=== PATIENT | male | born 1960 | race Caucasian/White ===

== ENCOUNTER → 2017-07-01 | Outpatient (CLI) | payer OTHER ==
[~2017-07-01] MED LIST: IOPAMIDOL (ISOVUE 370) 100 ML BTL IV ONE
== END ==
LOC: FIMAGING 07:55
PROVIDERS: ATTEND Internal Medicine Cardiovascular Disease
DX: I48.91 Unspecified atrial fibrillation (principal); R91.8 Other nonspecific abnormal finding of lung field
CPT/HCPCS: Q9967

== ENCOUNTER 2017-07-11 11:03 | Observation (INO) | payer OTHER ==
[2017-07-11] MEDS ORDERED: NS 1,000 ML IV ONE (11:07)
--- NOTE | 2017-07-11 11:28 | CPEKG ---
Heart Rate: 53 RR Interval: 1132 P-R Interval: 180 QRSD Interval: 96 QT Interval: 440 QTC Interval: 414 P Nutley: 41 QRS Nutley: 31 T Wave Nutley: 49 EKG Severity - NORMAL ECG - EKG Impression: SINUS RHYTHM Electronically Signed By: Milind Ruiz 11-Jul-2017 13:53:33
[2017-07-11 11:46] LABS: % IMMATURE GRANULYOCYTES 0.3 % (0.0-1.1); ABSOLUTE IMMATURE GRANULOCYTES 0.02 10^3/uL (0.00-0.10); ADD DIFF? NO; ADD MORPH? NO; ADD SCAN? NO; ATYPICAL LYMPHOCYTE FLAG 10 (0-99); FRAGMENT RBC FLAG 0 (0-99); HEMATOCRIT 45.6 % (40.0-51.0); HEMOGLOBIN 16.2 g/dL (13.7-17.5); LEFT SHIFT FLG 0 (0-99); LIPEMIA HEMOLYSIS FLAG 90 (0-99); MEAN CELL HEMOGLOBIN 30.7 pg (27.9-34.1); MEAN CELL HEMOGLOBIN CONCENTR. 35.5 g/dL (32.4-36.7); MEAN CELL VOLUME 86.4 fL (81.5-99.8); MEAN PLATELET VOLUME 8.9 fL (8.7-11.7); PLATELET CLUMPS FLAG 0 (0-99); PLATELET COUNT 201 10^3/uL (150-400); RED BLOOD CELL COUNT 5.28 10^6/uL (4.40-6.38); RED CELL DISTRIBUTION WIDTH 12.5 % (11.5-15.2)
[2017-07-11 11:55] LABS: PROTIME(PATIENT) 13.1 SEC (12.0-15.0)
[2017-07-11 11:56] LABS: APTT 25.8 SEC (23.0-38.0)
[2017-07-11] MEDS ORDERED: LIDOCAINE 1% 300 MG/30 ML SDV ONE (11:58)
[2017-07-11] MEDS ORDERED: HEPARIN/DEXTROSE 25,000 UNIT/500 ML BAG ONE (11:58)
[2017-07-11] MEDS ORDERED: BUPIVACAINE 0.5% 30 ML SDV ONE (11:59)
[2017-07-11] MEDS ORDERED: HEPARIN 10,000 UNIT/10 ML MDV ONE (11:59)
[2017-07-11] MEDS ORDERED: IOPAMIDOL (ISOVUE-300) 100 ML BTL ONE (12:03)
[2017-07-11 12:05] LABS: ANION GAP 11 mEq/L (8-16); CALCIUM 9.8 mg/dL (8.5-10.4); CARBON DIOXIDE 24 mEq/l (22-31); CHLORIDE 104 mEq/L (97-110); GLOMERULAR FILTRATION RATE > 60; GLUCOSE 82 mg/dL (70-100); MAGNESIUM 2.1 mg/dL (1.6-2.3); POTASSIUM 4.4 mEq/L (3.5-5.2); SODIUM 139 mEq/L (134-144)
--- NOTE | 2017-07-11 12:12 | PDHPUP ---
History & Physical Update H&P update statement: This history and physical update is based on an assessment of the patient which was completed after admission or registration (within 24 hours), but prior to the surgery/procedure. H&P update: H&P reviewed & patient examined, no change in patient's condition since H&P completed
[2017-07-11] MEDS ORDERED: MIDAZOLAM 2 MG/2 ML VIAL ONE (12:45)
[2017-07-11] MEDS ORDERED: PROPOFOL/EMULSION 500 MG/50 ML BOTTLE IV ONE ×2 (12:48→14:11)
[2017-07-11] MEDS ORDERED: fentaNYL 100 MCG/2 ML INJ ONE (12:48)
[2017-07-11] MEDS ORDERED: MIDAZOLAM 2 MG/2 ML VIAL IVP ONE (13:22)
--- NOTE | 2017-07-11 13:22 | PDANEPAE ---
ANE Past Medical History - Pulmonary History Hx Oxygen in Use at Home: No Hx Sleep Apnea: No ANE Review of Systems Review of Systems: ANE Patient History - Allergies Allergies/Adverse Reactions: levofloxacin [From Levaquin] Allergy (Intermediate, Verified 05/11/15 17:10) Hives NSAIDS (Non-Steroidal Anti-Inflamma Allergy (Intermediate, Verified 05/11/15 17: 10) INCREASES HIVES POLLEN Allergy (Intermediate, Uncoded 12/08/10 17:31) HIVES/STUFFY NOSE - Home Medications Home Medications: Cetirizine [ZyrTEC 10 mg (*)] 10 mg PO DAILY PRN 07/08/17 [Last Taken Unknown] Herbals/Supplements -Info Only 1 ea PO DAILY 07/08/17 [Last Taken Unknown] Omeprazole [Prilosec 20 mg] 20 mg PO DAILY 07/08/17 [Last Taken Unknown] ZOLPIDEM TARTRATE [Ambien CR 12.5 mg] 12.5 mg PO HS PRN 07/08/17 [Last Taken Unknown] celeCOXIB [CeleBREX] 100 mg PO DAILY PRN 07/08/17 [Last Taken Unknown] - Smoking Hx Smoking Status: Never smoked ANE Labs/Vital Signs - Labs Result Diagrams: 07/11/17 11:30 07/11/17 11:30 - Vital Signs Height: 187.96 cm ANE Physical Exam - Airway Neck exam: FROM Mallampati Score: Class 1 Mouth exam: normal dental/mouth exam - Pulmonary Pulmonary: no respiratory distress, no rales or rhonchi, clear to auscultation - Cardiovascular Cardiovascular: regular rate and rhythym, no murmur, rub, or gallop - ASA Status ASA Status: II ANE Anesthesia Plan Anesthesia Plan: general endotracheal anesthesia
[2017-07-11] MEDS ORDERED: RANITIDINE 50 MG/2 ML VIAL ONE (14:06)
[2017-07-11] MEDS ORDERED: METOCLOPRAMIDE 10 MG/2 ML VIAL ONE (14:06)
[2017-07-11] MEDS ORDERED: ROCURONIUM 50 MG/5 ML VIAL ONE ×3 (14:06→14:10)
[2017-07-11] MEDS ORDERED: ONDANSETRON 4 MG/2 ML VIAL ONE (14:06)
[2017-07-11] MEDS ORDERED: epHEDrine SULFATE 10 MG/ML SYR ONE (15:35)
[2017-07-11] MEDS ORDERED: SUGAMMADEX SODIUM 200 MG/2 ML VIAL IVP ONE (15:35)
[2017-07-11] MEDS ORDERED: PHENYLEPHRINE HCL 100 MCG/ML SYR ONE (15:35)
[2017-07-11] MEDS ORDERED: PROTAMINE SULFATE 50 MG/5 ML VIAL IVP ONE (15:39)
[2017-07-11] MEDS ORDERED: ACETAMINOPHEN 325 MG TAB PO PRN (15:46)
[2017-07-11] MEDS ORDERED: ONDANSETRON 4 MG/2 ML VIAL IVP PRN (15:46)
[2017-07-11] MEDS ORDERED: OXYCODONE/APAP 5/325 TAB PO PRN (15:46)
[2017-07-11] MEDS ORDERED: CETIRIZINE 10 MG TAB PO PRN (15:49)
[2017-07-11] MEDS ORDERED: DEXAMETHASONE 4 MG/ML VIAL IVP PRN (15:54)
[2017-07-11] MEDS ORDERED: PROMETHAZINE HCL 25 MG/ML INJ IVP PRN (15:54)
[2017-07-11] MEDS ORDERED: NALOXONE HCL 0.4 MG/ML INJ IVP PRN (15:54)
[2017-07-11] MEDS ORDERED: MEPERIDINE 25 MG/ML SYR IVP PRN (15:54)
[2017-07-11] MEDS ORDERED: fentaNYL 100 MCG/2 ML INJ IVP PRN (15:54)
[2017-07-11] MEDS ORDERED: LR 500 ML IV PRN (15:54)
[2017-07-11] MEDS ORDERED: METOCLOPRAMIDE 10 MG/2 ML VIAL IVP PRN (15:54)
[2017-07-11] MEDS ORDERED: LIDOCAINE/PRILOCAINE 1 EACH CRTUBE TP ONE (16:15)
--- NOTE | 2017-07-11 16:26 | POSTANESTH ---
Post Anesthetic Evaluation Cardiovascular Status: Normal, Stable Respiratory Status: Normal, Stable Level of Consciousness/Mental Status: Can Participate in Eval Pain Control: Adequate, Prn Tx Ordered Nausea/Vomiting Control: Adequate, Prn Tx Ordered Complications Possibly Related to Anesthesia: None Noted
[2017-07-11] MEDS ORDERED: ZOLPIDEM TARTRATE 5 MG TAB PO PRN (16:43)
--- NOTE | 2017-07-11 16:58 | CPEKG ---
Heart Rate: 77 RR Interval: 779 P-R Interval: 200 QRSD Interval: 96 QT Interval: 400 QTC Interval: 453 P Donner: 64 QRS Donner: 40 T Wave Donner: 67 EKG Severity - ABNORMAL ECG - EKG Impression: SINUS RHYTHM EKG Impression: LEFT VENTRICULAR HYPERTROPHY Electronically Signed By: Milind Ruiz 12-Jul-2017 12:03:12
[2017-07-11 20:52] VITALS: TEMP 98.6
[2017-07-12] MEDS ORDERED: ENOXAPARIN 80 MG/0.8 ML SYR SC ONE (01:00)
[2017-07-12 06:02] LABS: % IMMATURE GRANULYOCYTES 0.3 % (0.0-1.1); ABSOLUTE IMMATURE GRANULOCYTES 0.03 10^3/uL (0.00-0.10); ADD DIFF? NO; ADD MORPH? NO; ADD SCAN? NO; ATYPICAL LYMPHOCYTE FLAG 0 (0-99); FRAGMENT RBC FLAG 0 (0-99); HEMATOCRIT 41.1 % (40.0-51.0); HEMOGLOBIN 14.1 g/dL (13.7-17.5); LEFT SHIFT FLG 0 (0-99); LIPEMIA HEMOLYSIS FLAG 90 (0-99); MEAN CELL HEMOGLOBIN 30.1 pg (27.9-34.1); MEAN CELL HEMOGLOBIN CONCENTR. 34.3 g/dL (32.4-36.7); MEAN CELL VOLUME 87.8 fL (81.5-99.8); PLATELET CLUMPS FLAG 0 (0-99); PLATELET COUNT 177 10^3/uL (150-400); RED BLOOD CELL COUNT 4.68 10^6/uL (4.40-6.38); RED CELL DISTRIBUTION WIDTH 12.6 % (11.5-15.2)
[2017-07-12 06:11] LABS: INR 1.1 (0.83-1.16); PROTIME(PATIENT) 14.1 SEC (12.0-15.0)
[2017-07-12 06:15] LABS: ANION GAP 10 mEq/L (8-16); CALCIUM 8.9 mg/dL (8.5-10.4); CARBON DIOXIDE 25 mEq/l (22-31); CHLORIDE 102 mEq/L (97-110); CREATININE 0.9 mg/dL (0.7-1.3); GLOMERULAR FILTRATION RATE > 60; GLUCOSE 115 mg/dL (70-100); POTASSIUM 4.1 mEq/L (3.5-5.2); SODIUM 137 mEq/L (134-144)
[2017-07-12 06:26] LABS: CK-MB INTERPRETATION POSITIVE (NEGATIVE)
--- NOTE | 2017-07-12 08:52 | CPEKG ---
Heart Rate: 70 RR Interval: 857 P-R Interval: 188 QRSD Interval: 92 QT Interval: 368 QTC Interval: 398 P Kent: 58 QRS Kent: 32 T Wave Kent: 44 EKG Severity - BORDERLINE ECG - EKG Impression: SINUS RHYTHM EKG Impression: BORDERLINE ST ELEVATION, ANTEROLATERAL LEADS Electronically Signed By: Milind Ruiz 12-Jul-2017 12:03:24
[2017-07-12] MEDS ORDERED: Herbals/Supplements -Info Only PO SCH (09:00)
[2017-07-12] MEDS ORDERED: PANTOPRAZOLE SODIUM 40 MG TAB PO SCH ×2 (09:00)
[2017-07-12] MEDS ORDERED: NON-FORMULARY NEW DRUG (Omeprazole [Prilosec 20 Mg] 20 MG) PO SCH (09:00)
[2017-07-12] MEDS ORDERED: APIXABAN 5 MG TAB PO SCH (09:00)
[2017-07-12 09:27] VITALS: O2SAT 98
[2017-07-12] MEDS ORDERED: PNEUMOCOCCAL 0.5ML VACCINE VIAL IM ONE (09:59)
--- NOTE | 2017-07-12 12:35 | ASMTCMCOM ---
CM Note CM Note Notes: Chart reviewed, No needs identified at this time. Home independent. CM available sholud needs arise. Date Signed: 07/12/2017 12:34 PM Electronically Signed By:Mary Devlin RN
--- NOTE | 2017-07-12 13:00 | EPPROC ---
Electrophysiology Procedure Note: Procedures performed: 05313-56 EP evaluation with RA/RV/LA pace/record, with arrhythmia induction 02160-10 EP evaluation with RA/RV pace record, insert/reposition catheter, with arrhythmia induction 03316 Atrial fibrillation ablation Intracardiac echocardiogram Cardioversion Transseptal puncture Fluoroscopy INDICATION: Paroxysmal atrial fibrillation PROCEDURE: The patient arrived in the Electrophysiology Laboratory in the fasting state. The right groin, left groin and right infraclavicular area were prepped and draped in the usual sterile fashion. Anesthesiologist administered general anesthesia. All catheters were placed percutaneously using the Seldinger technique and advanced into position under fluoroscopic guidance. One #7 Burmese deflectable octapolar electrode catheter was placed in the His-bundle position via the left femoral vein (2mm spacing, IVC electrode for unipolar recordings). This catheter was placed in the coronary sinus after transseptal puncture and later placed in the SVC-R subclavian vein junction to pace the right phrenic nerve during right pulmonary vein ablation. One #8 Burmese AcuNaV ultrasound catheter was placed in the left femoral vein and advanced into the right atrium. One #4 Burmese sheath was inserted into the left femoral artery via percutaneous technique and used for continuous arterial blood pressure monitoring and intermittent ACT determination. Programmed stimulation was performed from the right atrium, left atrium (CS) and right ventricle. There was no evidence of AV accessory pathway. Intracardiac echo evaluation of the left atrium and pulmonary veins was performed. Baseline ACT was drawn and heparin bolus was administered and heparin drip was started prior to transseptal puncture. ACT was checked every 15 minutes and maintained in the range of 350-400 seconds. One 14Fr short sheath was placed in the right femoral vein. One 8Fr SL1 sheath was advanced into the right atrium via the 14Fr short sheath. Transseptal puncture was performed under intracardiac ultrasound, fluoroscopic and hemodynamic guidance placing the sheath into the left atrium. Lewis RF needle ( C0 curve) was used. The mean left atrial pressure was 4 mmHg. Pulmonary vein angiogram was done using SL1 sheath. CT angiography of pulmonary veins was done previously. There were distinct LSPV, LIPV, RSPV and RIPV. The SL1 sheath was exchanged for a Durata Therapeuticstronic Flexcath sheath using an Amplatz stiff guide wire. A 28 mm Cryoballoon catheter with a 20 mm Achieve catheter was placed via the sheath into the left atrium. Intracardiac ultrasound and PV angiograms were used to assist in placing the mapping catheter at the antrum of the pulmonary veins. All pulmonary veins were isolated successfully using cryoballoon ablation using freeze/thaw/freeze cycles at 2-3-minute intervals, with good [id number] of isolation. Coumadin ridge/Ligament of Jaxson region was ablated. Pre and post pulmonary vein recordings were measured on the spiral Achieve catheter to ensure complete pulmonary vein isolation. During the right-sided ablation, phrenic nerve pacing was performed to assess the phrenic nerve strength ( manually and with ICE visualization of liver movement during phrenic capture) and the phrenic nerve was intact throughout the right-sided ablation and at the end of the procedure. An esophageal temperature probe (12 electrode, Circa) was placed by the anesthesiologist at the beginning of the procedure. Esophageal temperature was monitored continuously and cryoablation was interrupted if esophageal temperature was <15 C. Cryoapplications 6, total cryoablation time 1120sec (LSPV -42, 420sec, LIPV -41 , 240sec, RIPV -50 390sec, RSPV -52 240sec). manipulation in the LSPV led to AF and pt had to be CV twice from AF There was no spontaneous atrial fibrillation. Mapping of all 4 pulmonary veins after isoproterenol infusion showed that all 4 pulmonary veins remained isolated. ICE imaging post ablation was consistent with pre ablation imaging with no changes noted, moreover there was no left atrial/left ventricular thrombus and no pericardial effusion. The catheters were withdrawn. Protamine was given. The sheaths were removed and manual pressure was used for hemostasis. The patient was recovered from anesthesia. There were no complications. The patient was arousable and moving all four extremities at the end of the procedure. Results: Paroxymsal AF Successful isolation of four veins CV X 2 post manipulation in LSPV CONCLUSIONS: * Paroxysmal atrial fibrillation. * Successful pulmonary vein isolation procedure (left and right pulmonary vein antrum) using cryoballoon ablation. * No apparent complications.
[2017-07-12 14:06] VITALS: BP 119/74; PULSE 76; RESP 19
--- NOTE | 2017-07-12 14:17 | GDS ---
[f rep st] DISCHARGE SUMMARY DIAGNOSIS ADMISSION: 1. Paroxysmal atrial fibrillation. 2. Palpitations. 3. Lightheadedness. DISCHARGE DIAGNOSIS: 1. Paroxysmal atrial fibrillation. 2. Status post pulmonary vein isolation, cryo balloon ablation for atrial fibrillation. PROCEDURES PERFORMED DURING HOSPITALIZATION: 1. Electrocardiogram. 2. Electrophysiology study. 3. Pulmonary vein isolation with cryo balloon ablation. 4. Echocardiogram. BRIEF HISTORY: Please see H and P. Briefly, the patient is a 56-year-old male, who was reporting ep isodes of palpitations and lightheadedness, he feels that this has been worsening. He did undergo ca rdiac monitoring, and was noted to have several episodes of atrial fibrillation, correlating with his symptoms. He was seen by Dr. Alvarez for evaluation, he was given options of medical management or int ervention. After reviewing the risks and benefits, the patient chose to undergo pulmonary vein isola tion procedure for attempted atrial fibrillation ablation. The patient was admitted to [facility], prepped for procedure, and taken to electrophysiology lab. There, E P procedure was performed, followed by successful pulmonary vein isolation procedure using cryo ballo on ablation. No apparent complications, patient was transferred to the intensive care unit for [facility] observation. There, he has been maintaining sinus rhythm, his vital signs are stable. He denie s any chest pain or shortness of breath. He has been up and walking here without any difficulties. PHYSICAL EXAMINATION ON DATE OF DISCHARGE: GENERAL APPEARANCE: Tall, well-groomed, male. He is alert and oriented to person, place, time, situation. Appears to be under no acute distress. CURRENT VITAL SIGNS: Blood pressure 123/82, heart rate 75, sinus rhythm on the monitor. Respiratio ns 14, saturating 98% on room air. HEENT: Head is normocephalic. Lips, tongue are pink and moist w ith no signs of cyanosis. Conjunctivae are pink. NECK: Trachea is midline, +2 carotid pulses bilat eral. No auscultated bruits, no jugular vein distention. RESPIRATORY: Lungs clear to auscultation, no rhonchi, rales or wheezes, no accessory muscle use, no intercostal muscle retraction noted. CARD IAC: Regular rate, regular rhythm, S1, S2, no S3, S4, gallops, rubs or murmur noted. ABDOMEN: Soft , nontender, bowel sounds x4 quadrants. No organomegaly, no palpable masses. SKIN: [place], warm, dry , no cyanosis, no clubbing, no peripheral edema. VASCULAR: +2 carotids bilateral, +2 radials bilate ral, +1 dorsal pedal and posterior tibial pulses bilateral. Catheter insertion site, bilateral groin sites, each site with no redness, swelling, drainage, ecchymosis, or hematoma. No auscultated bruit at either site. LABORATORY STUDIES: Studies drawn today show WBC of 10.73, hemoglobin of 14.1, hematocrit of 41.1, p latelet count 177, INR 1.10, sodium 137, potassium 4.1, chloride 102, CO2 25, BUN 15, creatinine 0.9, glucose 115, calcium 8.9. CK 226, CK-MB fraction 33.0, CK-MB percentage 14.6, noted troponin of 14. 10, expected to have elevated cardiac enzymes status post cryo balloon ablation. STUDIES: Electrophysiology and cryo balloon ablation as mentioned above. Morning electrocardiogram shows sinus rhythm, normal axis, borderline ST elevation in anterior lateral leads. Echocardiogram: Preliminary echocardiogram shows normal LV wall motion with normal EF. No pericardi al effusion. DISCHARGE DISPOSITION: Patient will be discharged home in stable condition. He is under activity re strictions of not lifting more than 10 pounds for next week, and no strenuous activity for the next 2 weeks. DISCHARGE MEDICATIONS: Please see discharge medication reconciliation sheet, note patient has been s tarted on Eliquis at 5 mg p.o. twice daily after cryo balloon ablation due to higher risk of thrombot ic event post ablation. He has also been advised to take Prilosec 20 mg p.o. daily for the next 6 we eks. DISCHARGE INSTRUCTIONS: Post cryo balloon atrial fibrillation ablation discharge instructions went o izabella with the patient including monitoring for signs of infection, activity restrictions, bleeding pre cautions, medication compliance, medication risk with Eliquis. At the time of discharge, patient izabella balizes understanding and has no questions. He has a followup appointment set with Dr. Alvarez in early July. He has been told that if any problems or concerns post hospital discharge, he is to notif y our office or return to the hospital. TOTAL TIME SPENT ON DISCHARGE: Greater than 30 minutes. /[id number]/MODL
--- NOTE | 2017-07-12 15:18 | ECHO ---
[email or web address] [address] [address] Main: [phone] Fax: Transthoracic Echocardiogram Name: NELLIE BALLARD MR#: [id number] Study Date: 07/12/2017 Study Time: 08:11 AM Date of : 1960 Age: 56 year(s) Height: ( ) Weight: ( ) BSA: Gender: Male Examination: Echo Indication: F/U post EP study Image Quality: Contrast: Requested by: Morgan Alvarez BP: 125 mmHg/82 mmHg Heart Rate: Rhythm: Indication: F/U post EP study Procedure Staff Tie Tamper: Meghna Sanchez Physician: Gricelda Navas Requesting Provider: Conclusions: Normal size left ventricle. No LV hypertrophy. Normal global systolic LV function. EF is 64 %. No regional wall motion abnormality. Normal size right ventricle. Normal RV function. The left atrium is normal in size. The right atrium is normal in size. The mitral valve is normal in appearance and function. No pericardial effusion. Measurements: Chambers Valvular Assessment AV/MV Valvular Assessment TV/PV Normal Normal Normal Name Value Range Name Value Range Name Value Range Ao Emy (MM): 4.0 cm (2.2 cm-3.7 AV Vmax: 1.03 m/s (1 m/s-1.7 TR Vmax: 2.17 mm/s ( - ) cm) m/s) TR PGmax: 19 mmHg ( - ) IVSd (2D): 1.1 cm (0.6 cm-1.1 AV maxP mmHg ( - ) syst. PAP: 24 mmHg ( - ) cm) MV E Vmax: 0.67 m/s ( - ) LVDd (2D): 4.7 cm (4.2 cm-5.9 MV A Vmax: 0.40 m/s ( - ) cm) MV E/A: 1.68 ( - ) LVDs (2D): 3.1 cm (2.1 cm-4 cm) LVPWd (2D): 0.9 cm (0.6 cm-1 cm) LVEF (MOD4): 64 % (>=55 %) Continued Measurements: Chambers Valvular Assessment AV/MV Valvular Assessment TV/PV Patient: NELLIE BALLARD Study Date: 07/12/2017 Page 1 of 2 08:11 AM Name Value Name Value Name Value LADs: 3.8 cm MV E' Septal: 0.11 m/s CVP (est.): 5 mmHg LADs Lon.9 cm MV E/E' Septal: 6.30 LA Area: 16.8 cm2 MV E/E' Lateral: 4.80 Additional Vessels Name Value Ao Ascendin.5 cm Findings: Left Ventricle: Normal size left ventricle. No LV hypertrophy. Normal global systolic LV function. EF is 64 %. No regional wall motion abnormality. Right Ventricle: Normal size right ventricle. Normal RV function. Left Atrium: The left atrium is normal in size. Right Atrium: The right atrium is normal in size. Mitral Valve: The mitral valve is normal in appearance and function. Trivial mitral valve regurgitation. Aortic Valve: The aortic valve is normal in appearance and function. Tricuspid Valve: The tricuspid valve is normal in appearance and function. Trivial tricuspid valve regurgitation. Pulmonic Valve: The pulmonic valve is normal in appearance and function. Trivial pulmonic valve regurgitation. Aorta: The aorta is normal. Pericardium: No pericardial effusion. (No Signature Object) Patient: NELLIE BALLARD Study Date: 07/12/2017 Page 2 of 2 08:11 AM [id number]
== END 2017-07-12 15:39 | disposition home or self-care (01) ==
LOC: FCATH 11:03 → F2N 16:14 → INTOOBSV 16:14
PROVIDERS: ADMIT Internal Medicine Cardiovascular Disease; ATTEND Internal Medicine Cardiovascular Disease
DX: I48.0 Paroxysmal atrial fibrillation (principal); Z23 Encounter for immunization; R00.2 Palpitations; R42 Dizziness and giddiness
CPT/HCPCS: 90471; 93005; 93306; 93609; 93656; 93662; C1893; G0378; C1730; C1731; C1732; C1733; C1759; C1766; G0009; J1644; J1650; J2250; J2370; J2405; J2704; J2720; J2765; J2780; J3010; Q9967

== ENCOUNTER 2018-06-23 18:47 | Emergency (ER) | payer OTHER ==
[2018-06-23] MEDS ORDERED: EPINEPHrine 1 MG/ML INJ IM ONE (18:55)
[2018-06-23] MEDS ORDERED: methylPREDNISolone SOD SUCC 125 MG/2 ML VIAL IVP ONE (18:55)
[2018-06-23] MEDS ORDERED: RANITIDINE 50 MG/2 ML VIAL IVP ONE (18:55)
--- NOTE | 2018-06-23 18:58 | EDPHY ---
H & P Time Seen by Provider: 06/23/18 18:47 HPI/ROS: CHIEF COMPLAINT: Allergic reaction HISTORY OF PRESENT ILLNESS: 57-year-old male with recurrent anaphylaxis presents with generalized rash. While running today, he developed a an itchy rash. He stopped at a grocery store and then felt very dizzy. He called 911. On EMS arrival, blood pressure was 80/60 and he had generalized hives. Benadryl 50 mg IV given. Repeat blood pressure improved. Continues to have an itchy rash, no shortness of breath, oral swelling or dizziness. History of multiple episodes of anaphylaxis of unclear etiology. Has seen an lorry weigher. REVIEW OF SYSTEMS: complete 10 point ROS reviewed and is negative except for the noted elements in the HPI - Medical/Surgical History Hx Asthma: Yes Hx Chronic Respiratory Disease: No Hx Diabetes: No Hx Cardiac Disease: No Hx Renal Disease: No Hx Cirrhosis: No Hx Alcoholism: No Hx HIV/AIDS: No Hx Splenectomy or Spleen Trauma: No Other PMH: L shoulder surg 4 weeks ago - Social History Smoking Status: Never smoked - Physical Exam Exam: General Appearance: Alert, pleasant Eyes: Pupils equal and round, no periorbital swelling ENT, Mouth: Mucous membranes moist, no oral swelling Neck: Normal inspection, no stridor Respiratory: Lungs are clear to auscultation, no wheezing Cardiovascular: Regular rate and rhythm Neurological: A&O, nonfocal, normal gait Skin: Generalized hives Extremities: No swelling Psychiatric: Mood and affect normal Constitutional: Initial Vital Signs Temperature (C) 36.6 C 06/23/18 18:55 Heart Rate 76 06/23/18 18:55 Respiratory Rate 18 06/23/18 18:55 Blood Pressure 125/80 H 06/23/18 18:55 O2 Sat (%) 99 06/23/18 18:55 O2 Delivery Mode Room Air O2 (L/minute) 2 Allergies/Adverse Reactions: levofloxacin [From Levaquin] Allergy (Intermediate, Verified 05/11/15 17:10) Hives NSAIDS (Non-Steroidal Anti-Inflamma Allergy (Intermediate, Verified 05/11/15 17: 10) INCREASES HIVES POLLEN Allergy (Intermediate, Uncoded 12/08/10 17:31) HIVES/STUFFY NOSE Home Medications: Medication Instructions Recorded Cetirizine [ZyrTEC 10 mg (*)] 10 mg PO DAILY PRN 07/08/17 Herbals/Supplements -Info Only 1 ea PO DAILY 07/08/17 Omeprazole [Prilosec 20 mg] 20 mg PO DAILY 07/08/17 ZOLPIDEM TARTRATE [Ambien CR 12.5 12.5 mg PO HS PRN 07/08/17 mg] celeCOXIB [CeleBREX] 100 mg PO DAILY PRN 07/08/17 Acetaminophen [Tylenol 325mg (*)] 325 - 650 mg PO Q4HRS PRN tab 07/12/17 EPINEPHrine [Epipen 0.3 MG] 0.3 mg IM ONCE #2 syr 06/23/18 predniSONE 60 mg PO DAILY #9 tab 06/23/18 Medical Decision Making ED Course/Re-evaluation: This patient presents with anaphylaxis. Epinephrine 0.3 IM given, followed by Solu-Medrol 125 mg IV and Zantac 50 mg IV. Will observe. 8pm-vital signs stable, asymptomatic. The rash has resolved. Will discharge home. - Data Points Medications Given: Discontinued Medications Epinephrine HCl (Epinephrine) 0.3 mg IM EDNOW ONE Stop: 06/23/18 18:56 Last Admin: 06/23/18 18:54 Dose: 0.3 mg Methylprednisolone Sodium Succinate (Solu-Medrol) 125 mg IVP EDNOW ONE Stop: 06/23/18 18:56 Last Admin: 06/23/18 18:59 Dose: 125 mg Ranitidine HCl (Zantac) 50 mg IVP EDNOW ONE Stop: 06/23/18 18:56 Last Admin: 06/23/18 18:59 Dose: 50 mg Departure - Departure Disposition: Home, Routine, Self-Care Clinical Impression: Acute anaphylaxis Qualifiers: Encounter type: initial encounter Qualified Code(s): T78.2XXA - Anaphylactic shock, unspecified, initial encounter Condition: Good Instructions: Anaphylaxis (ED) Additional Instructions: Take Claritin in the morning and Benadryl at night while the rash persists. Take prednisone as prescribed. Return for worsening symptoms or any concerns. Referrals: Jeovanny Wren MD [Medical Doctor] - As per Instructions Prescriptions: EPINEPHrine [Epipen 0.3 MG] 0.3 mg IM ONCE #2 syr predniSONE 60 mg PO DAILY #9 tab
[2018-06-23 19:53] VITALS: BP 123/75
[2018-06-23] MEDS ORDERED: methylPREDNISolone SOD SUCC 125 MG/2 ML VIAL ONE (22:29)
[2018-06-23] MEDS ORDERED: RANITIDINE 50 MG/2 ML VIAL ONE (22:29)
[2018-06-23] MEDS ORDERED: EPINEPHrine KIT (USE FOR EPIPEN) 1 MG/ML IM ONE (22:29)
== END 2018-06-23 19:57 | disposition home or self-care (01) ==
LOC: EDUNIT#
DX: T78.2XXA Anaphylactic shock, unspecified, initial encounter (principal); R21 Rash and other nonspecific skin eruption
CPT/HCPCS: 96374; J0171; J2780; J2930